=== PATIENT | male | born 1960 | race Caucasian/White ===

== ENCOUNTER → 2019-11-02 | Day surgery (SDC) | payer SELFPAY ==
[~2019-11-02] MED LIST: Sodium Chloride 0.9% 100 ML BAG ONE; cefTRIAXone\\ROCEPHIN 2 GM VIAL ONE
== END ==
LOC: MADER/OP 12:13
PROVIDERS: ATTEND Internal Medicine Infectious Disease
DX: R78.81 Bacteremia (principal)
CPT/HCPCS: 96365; J0696; J3490

== ENCOUNTER → 2019-11-03 | Day surgery (SDC) | payer SELFPAY | LOC: MADER/OP 11:06 | PROVIDERS: ATTEND Internal Medicine Infectious Disease | DX: R78.81 Bacteremia (principal) | CPT/HCPCS: J0696; J3490 ==

== ENCOUNTER → 2019-11-04 | Day surgery (SDC) | payer SELFPAY | LOC: MADER/OP 11:34 | PROVIDERS: ATTEND Internal Medicine Infectious Disease | DX: R78.81 Bacteremia (principal) | CPT/HCPCS: J0696; J3490 ==

== ENCOUNTER → 2019-11-05 | Day surgery (SDC) | payer SELFPAY | LOC: MADER/OP 11:30 | PROVIDERS: ATTEND Internal Medicine Infectious Disease | DX: B99.9 Unspecified infectious disease (principal); M01.X1 Direct infection of shoulder joint in infectious and parasitic diseases classified elsewhere | CPT/HCPCS: J0696; J3490 ==

== ENCOUNTER → 2019-11-06 | Day surgery (SDC) | payer SELFPAY ==
[2019-11-06 11:52] LABS: #Basophils 0.1 thou/uL (0.0-0.2); #Eosinphils 0.2 thou/uL (0.0-0.7); #Lymphocytes 1.8 thou/uL (1.20-3.40); #Neutrophils 6.4 thou/uL (1.40-6.50); %Basophils 0.7 % (0.0-1.0); %Eosinophils 1.7 % (0.0-10.0); %Lymphocytes 19.1 % (21.0-51.0); %Monocytes 10.3 % (0.0-10.0); %Neutrophils 68.2 % (42.0-75.0); Hemoglobin 13.9 g/dL (14.0-18.0); Mean Corpuscular HGB CONC 31.2 g/dL (32.0-36.0); Mean Corpuscular Hemoglobin 30.2 pg (27.0-31.0); Mean Corpuscular Volume 96.7 fL (78.0-98.0); Mean Platelet Volume 6.5 fL (7.4-10.4); Platelet Count 247 thou/uL (130-400); RBC Distribution Width 11.5 % (11.5-14.5); Red Blood Cell (RBC) Count 4.62 mill/uL (4.70-6.10); White Blood Cell (WBC) Count 9.4 thou/uL (4.8-10.8)
[2019-11-06 12:06] LABS: ALT (SGPT) 39 U/L (8-55); AST (SGOT) 24 U/L (5-34); Albumin 3.4 g/dL (3.5-5.0); Alkaline Phosphatase 96 U/L (40-110); Anion Gap 14 mmol/L (10-20); BUN (Urea Nitrogen) 20 mg/dL (8.4-25.7); Bilirubin, Total 0.4 mg/dL (0.2-1.2); CRP (Inflammatory) 1.17 mg/dL (= or < 0.5); Calc. Creatinine Clearance 0 mL/min (70-130); Calcium 8.8 mg/dL (7.8-10.44); Carbon Dioxide 24 mmol/L (22-29); Chloride 103 mmol/L (98-107); Estimated GFR-MDRD Greater than 90; Globulin 3.2 g/dL (2.4-3.5); Glucose 131 mg/dL (70-105); Potassium 4.1 mmol/L (3.5-5.1); Protein, Total 6.6 g/dL (6.0-8.3); Sodium 137 mmol/L (136-145)
== END ==
LOC: MADER/OP 11:07
PROVIDERS: ATTEND Internal Medicine Infectious Disease
DX: B99.9 Unspecified infectious disease (principal); M01.X1 Direct infection of shoulder joint in infectious and parasitic diseases classified elsewhere; Z79.2 Long term (current) use of antibiotics
CPT/HCPCS: 80053; 85025; 86140; J0696; J3490

== ENCOUNTER → 2019-11-07 | Day surgery (SDC) | payer SELFPAY | LOC: MADER/OP 11:12 | PROVIDERS: ATTEND Internal Medicine Infectious Disease | DX: B99.9 Unspecified infectious disease (principal); M01.X1 Direct infection of shoulder joint in infectious and parasitic diseases classified elsewhere | CPT/HCPCS: 96365; J0696; J3490 ==

== ENCOUNTER → 2019-11-08 | Day surgery (SDC) | payer SELFPAY | LOC: MADER/OP 11:14 | PROVIDERS: ATTEND Internal Medicine Infectious Disease | DX: B99.9 Unspecified infectious disease (principal); M01.X1 Direct infection of shoulder joint in infectious and parasitic diseases classified elsewhere | CPT/HCPCS: 96365; J0696; J3490 ==

== ENCOUNTER → 2019-11-09 | Day surgery (SDC) | payer SELFPAY | LOC: MADER/OP 10:44 | PROVIDERS: ATTEND Internal Medicine Infectious Disease | DX: R78.81 Bacteremia (principal); Z79.2 Long term (current) use of antibiotics | CPT/HCPCS: 96374; J0696; J3490 ==

== ENCOUNTER → 2019-11-10 | Day surgery (SDC) | payer SELFPAY | LOC: MADER/OP 10:41 | PROVIDERS: ATTEND Internal Medicine Infectious Disease | DX: R78.81 Bacteremia (principal); Z79.2 Long term (current) use of antibiotics | CPT/HCPCS: 96365; J0696; J3490 ==

== ENCOUNTER → 2019-11-11 | Day surgery (SDC) | payer SELFPAY | LOC: MADER/OP 10:47 | PROVIDERS: ATTEND Internal Medicine Infectious Disease | DX: R78.81 Bacteremia (principal) | CPT/HCPCS: 96365; J0696; J3490 ==

== ENCOUNTER → 2019-11-12 | Day surgery (SDC) | payer SELFPAY | LOC: MADER/OP 10:37 | PROVIDERS: ATTEND Internal Medicine Infectious Disease | DX: R78.81 Bacteremia (principal); Z79.2 Long term (current) use of antibiotics | CPT/HCPCS: 96365; J0696; J3490 ==

== ENCOUNTER → 2019-11-13 | Day surgery (SDC) | payer SELFPAY ==
[2019-11-13 11:04] LABS: #Basophils 0.1 thou/uL (0.0-0.2); #Eosinphils 0.2 thou/uL (0.0-0.7); #Lymphocytes 2.4 thou/uL (1.20-3.40); #Monocytes 0.9 thou/uL (0.11-0.59); #Neutrophils 5.6 thou/uL (1.40-6.50); %Basophils 0.6 % (0.0-1.0); %Lymphocytes 26.5 % (21.0-51.0); %Monocytes 9.4 % (0.0-10.0); %Neutrophils 61.5 % (42.0-75.0); Hemoglobin 13.7 g/dL (14.0-18.0); Mean Corpuscular HGB CONC 32.9 g/dL (32.0-36.0); Mean Corpuscular Hemoglobin 31.1 pg (27.0-31.0); Mean Corpuscular Volume 94.5 fL (78.0-98.0); Mean Platelet Volume 6.8 fL (7.4-10.4); Platelet Count 238 thou/uL (130-400); RBC Distribution Width 11.3 % (11.5-14.5); Red Blood Cell (RBC) Count 4.42 mill/uL (4.70-6.10); White Blood Cell (WBC) Count 9.1 thou/uL (4.8-10.8)
[2019-11-13 11:24] LABS: ALT (SGPT) 36 U/L (8-55); AST (SGOT) 22 U/L (5-34); Albumin 3.6 g/dL (3.5-5.0); Alkaline Phosphatase 123 U/L (40-110); Anion Gap 13 mmol/L (10-20); BUN (Urea Nitrogen) 20 mg/dL (8.4-25.7); Bilirubin, Total 0.8 mg/dL (0.2-1.2); CRP (Inflammatory) Less than 0.50 mg/dL (= or < 0.5); Calc. Creatinine Clearance 0 mL/min (70-130); Calcium 8.9 mg/dL (7.8-10.44); Carbon Dioxide 27 mmol/L (22-29); Chloride 102 mmol/L (98-107); Estimated GFR-MDRD Greater than 90; Globulin 3.5 g/dL (2.4-3.5); Glucose 99 mg/dL (70-105); Protein, Total 7.1 g/dL (6.0-8.3); Sodium 138 mmol/L (136-145)
== END ==
LOC: MADER/OP 10:31
PROVIDERS: ATTEND Internal Medicine Infectious Disease
DX: R78.81 Bacteremia (principal); Z79.2 Long term (current) use of antibiotics
CPT/HCPCS: 80053; 85025; 86140; 96365; J0696; J3490

== ENCOUNTER → 2019-11-14 | Day surgery (SDC) | payer SELFPAY | LOC: MADER/OP 09:57 | PROVIDERS: ATTEND Internal Medicine Infectious Disease | DX: R78.81 Bacteremia (principal); Z79.2 Long term (current) use of antibiotics | CPT/HCPCS: 96365; J0696; J3490 ==

== ENCOUNTER → 2019-11-15 | Day surgery (SDC) | payer SELFPAY | LOC: MADER/OP 09:52 | PROVIDERS: ATTEND Internal Medicine Infectious Disease | DX: R78.81 Bacteremia (principal); Z79.2 Long term (current) use of antibiotics | CPT/HCPCS: 96365; J0696; J3490 ==

== ENCOUNTER → 2019-11-16 | Day surgery (SDC) | payer SELFPAY | LOC: MADER/OP 09:57 | PROVIDERS: ATTEND Internal Medicine Infectious Disease | DX: R78.81 Bacteremia (principal); Z79.2 Long term (current) use of antibiotics | CPT/HCPCS: 96365; J0696; J3490 ==

== ENCOUNTER → 2019-11-19 | Day surgery (SDC) | payer SELFPAY | LOC: MADER/OP 09:11 | PROVIDERS: ATTEND Internal Medicine Infectious Disease | DX: R78.81 Bacteremia (principal); Z79.2 Long term (current) use of antibiotics | CPT/HCPCS: 96365; J0696; J3490 ==

== ENCOUNTER → 2019-11-20 | Day surgery (SDC) | payer SELFPAY ==
[2019-11-20 09:29] LABS: #Eosinphils 0.2 thou/uL (0.0-0.7); #Lymphocytes 1.7 thou/uL (1.20-3.40); #Monocytes 0.5 thou/uL (0.11-0.59); %Basophils 0.7 % (0.0-1.0); %Eosinophils 3.4 % (0.0-10.0); %Lymphocytes 26.5 % (21.0-51.0); %Monocytes 8.1 % (0.0-10.0); %Neutrophils 61.3 % (42.0-75.0); Hemoglobin 13.3 g/dL (14.0-18.0); Mean Corpuscular HGB CONC 31.6 g/dL (32.0-36.0); Mean Corpuscular Hemoglobin 29.9 pg (27.0-31.0); Mean Corpuscular Volume 94.6 fL (78.0-98.0); Mean Platelet Volume 6.7 fL (7.4-10.4); Platelet Count 200 thou/uL (130-400); RBC Distribution Width 11.1 % (11.5-14.5); Red Blood Cell (RBC) Count 4.43 mill/uL (4.70-6.10); White Blood Cell (WBC) Count 6.5 thou/uL (4.8-10.8)
[2019-11-20 09:41] LABS: ALT (SGPT) 31 U/L (8-55); AST (SGOT) 21 U/L (5-34); Albumin 3.8 g/dL (3.5-5.0); Alkaline Phosphatase 127 U/L (40-110); Anion Gap 13 mmol/L (10-20); BUN (Urea Nitrogen) 16 mg/dL (8.4-25.7); Bilirubin, Total 0.7 mg/dL (0.2-1.2); CRP (Inflammatory) 0.63 mg/dL (= or < 0.5); Calc. Creatinine Clearance 0 mL/min (70-130); Calcium 8.8 mg/dL (7.8-10.44); Carbon Dioxide 27 mmol/L (22-29); Chloride 102 mmol/L (98-107); Estimated GFR-MDRD Greater than 90; Globulin 3.2 g/dL (2.4-3.5); Glucose 153 mg/dL (70-105); Sodium 138 mmol/L (136-145)
== END ==
LOC: MADER/OP 08:42
PROVIDERS: ATTEND Internal Medicine Infectious Disease
DX: R78.81 Bacteremia (principal); Z79.2 Long term (current) use of antibiotics
CPT/HCPCS: 36415; 80053; 85025; 86140; 96365; J0696; J3490

== ENCOUNTER → 2019-11-21 | Day surgery (SDC) | payer SELFPAY ==
[~2019-11-21] MED LIST changes: -Sodium Chloride 0.9% 100 ML BAG ONE; +Sodium Chloride 0.9% 100 ML ONE
== END ==
LOC: MADERS 07:43
PROVIDERS: ATTEND Internal Medicine Infectious Disease
DX: R78.81 Bacteremia (principal); Z79.2 Long term (current) use of antibiotics
CPT/HCPCS: 96365; J0696; J3490

== ENCOUNTER → 2019-11-22 | Day surgery (SDC) | payer SELFPAY ==
[~2019-11-22] MED LIST changes: +Sodium Chloride 0.9% 100 ML BAG ONE; -Sodium Chloride 0.9% 100 ML ONE
== END ==
LOC: MADER/OP 09:06
PROVIDERS: ATTEND Internal Medicine Infectious Disease
DX: R78.81 Bacteremia (principal); Z79.2 Long term (current) use of antibiotics
CPT/HCPCS: 96365; J0696; J3490

== ENCOUNTER → 2019-11-23 | Day surgery (SDC) | payer SELFPAY | LOC: MADER/OP 09:19 | PROVIDERS: ATTEND Internal Medicine Infectious Disease | DX: R78.81 Bacteremia (principal); Z79.2 Long term (current) use of antibiotics | CPT/HCPCS: 96365; J0696; J3490 ==

== ENCOUNTER → 2019-11-24 | Day surgery (SDC) | payer SELFPAY | LOC: MADER/OP 09:37 | PROVIDERS: ATTEND Internal Medicine Infectious Disease | DX: R78.81 Bacteremia (principal); Z79.2 Long term (current) use of antibiotics | CPT/HCPCS: 96365; J0696; J3490 ==

== ENCOUNTER → 2019-11-25 | Day surgery (SDC) | payer SELFPAY | LOC: MADER/OP 09:37 | PROVIDERS: ATTEND Internal Medicine Infectious Disease | DX: R78.81 Bacteremia (principal); Z79.2 Long term (current) use of antibiotics | CPT/HCPCS: 96365; J0696; J3490 ==

== ENCOUNTER → 2019-11-26 | Day surgery (SDC) | payer SELFPAY | LOC: MADER/OP 09:37 | PROVIDERS: ATTEND Internal Medicine Infectious Disease | DX: R78.81 Bacteremia (principal); Z79.2 Long term (current) use of antibiotics | CPT/HCPCS: 96365; J0696; J3490 ==

== ENCOUNTER → 2019-11-27 | Day surgery (SDC) | payer SELFPAY ==
[2019-11-27 09:33] LABS: #Basophils 0.1 thou/uL (0.0-0.2); #Eosinphils 0.4 thou/uL (0.0-0.7); #Lymphocytes 1.6 thou/uL (1.20-3.40); #Monocytes 0.6 thou/uL (0.11-0.59); #Neutrophils 5.5 thou/uL (1.40-6.50); %Basophils 0.8 % (0.0-1.0); %Eosinophils 5.2 % (0.0-10.0); %Lymphocytes 19.2 % (21.0-51.0); %Monocytes 7.7 % (0.0-10.0); %Neutrophils 67.2 % (42.0-75.0); Hemoglobin 12.7 g/dL (14.0-18.0); Mean Corpuscular HGB CONC 31.8 g/dL (32.0-36.0); Mean Corpuscular Hemoglobin 30.1 pg (27.0-31.0); Mean Corpuscular Volume 94.9 fL (78.0-98.0); Mean Platelet Volume 6.7 fL (7.4-10.4); Platelet Count 197 thou/uL (130-400); RBC Distribution Width 11.5 % (11.5-14.5); Red Blood Cell (RBC) Count 4.21 mill/uL (4.70-6.10); White Blood Cell (WBC) Count 8.1 thou/uL (4.8-10.8)
[2019-11-27 10:34] LABS: ALT (SGPT) 23 U/L (8-55); AST (SGOT) 16 U/L (5-34); Albumin 3.7 g/dL (3.5-5.0); Alkaline Phosphatase 113 U/L (40-110); Anion Gap 14 mmol/L (10-20); BUN (Urea Nitrogen) 18 mg/dL (8.4-25.7); Bilirubin, Total 0.6 mg/dL (0.2-1.2); CRP (Inflammatory) 0.59 mg/dL (= or < 0.5); Calc. Creatinine Clearance 0 mL/min (70-130); Calcium 8.4 mg/dL (7.8-10.44); Carbon Dioxide 26 mmol/L (22-29); Chloride 102 mmol/L (98-107); Estimated GFR-MDRD 90; Globulin 2.6 g/dL (2.4-3.5); Glucose 161 mg/dL (70-105); Potassium 4.5 mmol/L (3.5-5.1); Protein, Total 6.3 g/dL (6.0-8.3); Sodium 137 mmol/L (136-145)
== END ==
LOC: MADER/OP 08:04
PROVIDERS: ATTEND Internal Medicine Infectious Disease
DX: R78.81 Bacteremia (principal); Z79.2 Long term (current) use of antibiotics
CPT/HCPCS: 36415; 80053; 85025; 86140; J0696; J3490

== ENCOUNTER → 2019-11-28 | Day surgery (SDC) | payer SELFPAY | LOC: MADER/OP 09:49 | PROVIDERS: ATTEND Internal Medicine Infectious Disease | DX: R78.81 Bacteremia (principal); Z79.2 Long term (current) use of antibiotics | CPT/HCPCS: J0696; J3490 ==

== ENCOUNTER → 2019-11-29 | Day surgery (SDC) | payer SELFPAY | LOC: MADER/OP 09:51 | PROVIDERS: ATTEND Internal Medicine Infectious Disease | DX: R78.81 Bacteremia (principal); Z79.2 Long term (current) use of antibiotics | CPT/HCPCS: J0696; J3490 ==

== ENCOUNTER → 2019-11-30 | Day surgery (SDC) | payer SELFPAY | LOC: MADER/OP 09:40 | PROVIDERS: ATTEND Internal Medicine Infectious Disease | DX: R78.81 Bacteremia (principal); Z79.2 Long term (current) use of antibiotics | CPT/HCPCS: J0696; J3490 ==

== ENCOUNTER → 2019-12-01 | Day surgery (SDC) | payer SELFPAY | LOC: MADER/OP 09:31 | PROVIDERS: ATTEND Internal Medicine Infectious Disease | DX: R78.81 Bacteremia (principal); Z79.2 Long term (current) use of antibiotics | CPT/HCPCS: J0696; J3490 ==

== ENCOUNTER → 2019-12-02 | Day surgery (SDC) | payer SELFPAY | LOC: MADER/OP 08:58 | PROVIDERS: ATTEND Internal Medicine Infectious Disease | DX: R78.81 Bacteremia (principal); Z79.2 Long term (current) use of antibiotics | CPT/HCPCS: J0696; J3490 ==

== ENCOUNTER → 2019-12-05 | Day surgery (SDC) | payer SELFPAY | LOC: MADER/OP 08:26 | PROVIDERS: ATTEND Internal Medicine Infectious Disease | DX: R78.81 Bacteremia (principal); Z79.2 Long term (current) use of antibiotics | CPT/HCPCS: J0696; J3490 ==

== ENCOUNTER → 2019-12-06 | Day surgery (SDC) | payer SELFPAY | LOC: MADER/OP 08:43 | PROVIDERS: ATTEND Internal Medicine Infectious Disease | DX: R78.81 Bacteremia (principal); Z79.2 Long term (current) use of antibiotics | CPT/HCPCS: J0696; J3490 ==

== ENCOUNTER → 2019-12-07 | Day surgery (SDC) | payer SELFPAY | LOC: MADER/OP 09:44 | PROVIDERS: ATTEND Internal Medicine Infectious Disease | DX: R78.81 Bacteremia (principal); Z79.2 Long term (current) use of antibiotics | CPT/HCPCS: 96365; J0696; J3490 ==

== ENCOUNTER → 2019-12-08 | Day surgery (SDC) | payer SELFPAY | LOC: MADER/OP 09:07 | PROVIDERS: ATTEND Internal Medicine Infectious Disease | DX: R78.81 Bacteremia (principal); Z79.2 Long term (current) use of antibiotics | CPT/HCPCS: 96365; J0696; J3490 ==

== ENCOUNTER → 2019-12-09 | Day surgery (SDC) | payer SELFPAY | LOC: MADER/OP 09:02 | PROVIDERS: ATTEND Internal Medicine Infectious Disease | DX: R78.81 Bacteremia (principal); Z79.2 Long term (current) use of antibiotics | CPT/HCPCS: 96365; J0696; J3490 ==